=== PATIENT | female | born 1995 | race Caucasian/White ===

== ENCOUNTER 2022-10-31 19:19 | Emergency (ER) | payer BC ==
[2022-10-31 20:17] VITALS: BP 144/96
[2022-10-31 20:18] VITALS: PULSE 111
[2022-10-31] MEDS ORDERED: Sodium Chloride 0.9% 10 ML Syringe FLUSH PRN (20:27)
[2022-10-31] MEDS ORDERED: Ondansetron 4 MG/2 ML SDV IVPUSH ONE (20:27)
[2022-10-31] MEDS ORDERED: Sodium Chloride 0.9% 1,000 ML IV SCH (20:30)
[2022-10-31 21:11] LABS: ESTIMATED GFR 80 mL/min (>60)
== END 2022-10-31 21:44 | disposition home or self-care (01) ==
LOC: JP.ED 19:19
DX: O98.511 Other viral diseases complicating pregnancy, first trimester (principal); A08.4 Viral intestinal infection, unspecified; Z3A.01 Less than 8 weeks gestation of pregnancy
CPT/HCPCS: 36415; 80053; 85025; 86140; 96361; 96374; 99284; J2405; J3490; J7030